=== PATIENT | male | born 1990 | race Caucasian/White ===

== ENCOUNTER 2017-10-14 20:58 | Emergency (ER) | payer MEDICAID ==
[~2017-10-14] VITALS: Ht 180.3 cm; Wt 75.0 kg
[2017-10-14 21:09] VITALS: BP 134/79
[2017-10-14] MEDS ORDERED: DEXAMETHASONE 4 MG TABLET ONE (21:46)
[2017-10-14] MEDS ORDERED: ACETAMINOPHEN 500 MG TABLET ONE (21:46)
[2017-10-14] MEDS ORDERED: DEXAMETHASONE 4 MG TABLET PO ONE (22:00)
[2017-10-14] MEDS ORDERED: ACETAMINOPHEN 500 MG TABLET PO ONE (22:00)
== END 2017-10-14 21:57 | disposition home or self-care (01) ==
LOC: ED 21:45
DX: J02.0 Streptococcal pharyngitis (principal)
CPT/HCPCS: 99283

== ENCOUNTER 2018-01-13 12:00 | Emergency (ER) | payer MEDICAID ==
[~2018-01-13] VITALS: Ht 180.3 cm; Wt 74.9 kg
[2018-01-13 12:06] VITALS: BP 114/76
[2018-01-13] MEDS ORDERED: IBUPROFEN 200 MG TABLET ONE (12:22)
[2018-01-13] MEDS ORDERED: IBUPROFEN 200 MG TABLET PO ONE (12:30)
== END 2018-01-13 12:50 | disposition home or self-care (01) ==
LOC: ED 12:30
DX: J02.8 Acute pharyngitis due to other specified organisms (principal); B34.9 Viral infection, unspecified; Z87.891 Personal history of nicotine dependence
CPT/HCPCS: 87081; 87880; 99284

== ENCOUNTER 2018-01-16 15:55 | Emergency (ER) | payer MEDICAID ==
[~2018-01-16] VITALS: Ht 180.3 cm; Wt 72.4 kg
[2018-01-16 16:02] VITALS: BP 122/72
[2018-01-16] MEDS ORDERED: MAALOX/HYOSCYAMINE/LIDOCAINE 45 ML BTL PO ONE (17:00)
[2018-01-16] MEDS ORDERED: MAALOX/HYOSCYAMINE/LIDOCAINE 45 ML BTL ONE (17:05)
== END 2018-01-16 17:22 | disposition home or self-care (01) ==
LOC: ED 17:16
DX: K12.0 Recurrent oral aphthae (principal); K08.89 Other specified disorders of teeth and supporting structures; Z87.891 Personal history of nicotine dependence
CPT/HCPCS: 87081; 87880; 99284

== ENCOUNTER 2019-06-28 00:13 | Emergency (ER) | payer MEDICAID ==
--- NOTE | 2019-06-28 00:25 | NUR ---
Patient BIB [facility]; he was found at a bar on the ground. Patient has a left side head laceration; bleeding controlled. Patient is only responsive to pain. He is incontinent of urine. Respirations even and unlabored.
[2019-06-28 00:40] LABS: BASOPHILS # (AUTO) 0.04 x10^3/uL (0-0.1); BASOPHILS % (AUTO) 1 % (0-1); EOSINOPHILS # (AUTO) 0.62 x10^3/uL (0-0.4); EOSINOPHILS % (AUTO) 8 % (1-7); LYMPHOCYTES % (AUTO) 28 % (22-44); MD NO; MEAN CORPUSCULAR HEMOGLOBIN 32.6 pg (27.5-34.5); MEAN CORPUSCULAR HGB CONC 33.9 g/dL (33.2-36.2); MEAN PLATELET VOLUME 7.5 fL (7.4-10.4); MONOCYTES # (AUTO) 0.71 x10^3/uL (0.2-0.8); MONOCYTES % (AUTO) 9 % (2-9); NEUTROPHILS # (AUTO) 4.65 x10^3/uL (1.8-6.8); NEUTROPHILS % (AUTO) 56 % (42-75); PLATELET COUNT 305 x10^3/uL (130-400); RED BLOOD COUNT 4.67 x10^6/uL (4.38-5.82); RED CELL DISTRIBUTION WIDTH 13.8 % (9.4-14.8)
[2019-06-28 00:45] LABS: ALBUMIN 3.8 g/dL (3.4-5.0); ANION GAP 5 mmol/L (5-15); CALCIUM 8.8 mg/dL (8.5-10.1); CHLORIDE 108 mmol/L (98-107); CREATININE 0.99 mg/dL (0.7-1.3)
--- NOTE | 2019-06-28 02:48 | NUR ---
Patient sleeping in gurney. Respirations even and unlabored.
--- NOTE | 2019-06-28 05:00 | NUR ---
Patient wakes to verbal stimuli but still falls asleep easily. ERP rechecked patient's lac. Will recheck when patient is awake.
--- NOTE | 2019-06-28 06:19 | NUR ---
Head lac reevluated by ERP. Violet recommended; patient alert to verbal stimuli and denied the need. Per ERP, advise patient again when he is more sober.
[2019-06-28 06:35] VITALS: BP 105/50
--- NOTE | 2019-06-28 07:01 | NUR ---
REPORT FROM RICHARD RN WITH ASSESSMENT PATIENT REMAINS QUITE INTOXICATED (WILL ONLY ROUSE TO PAINFUL STIMULI) PROTECTING AIRWAY, VSS WILL CONTINUE TO MONITOR
--- NOTE | 2019-06-28 08:15 | NUR ---
Patient now awake and oriented Denies complaints Road test/po challenge unremarkable Reported laceration assessed/cleansed- no laceration found-on superficial abrasion above left ear bacitracin applied. Reviewed wound care
== END 2019-06-28 09:29 | disposition home or self-care (01) ==
LOC: ED 07:10
DX: S01.01XA Laceration without foreign body of scalp, initial encounter (principal); F10.120 Alcohol abuse with intoxication, uncomplicated; Y90.9 Presence of alcohol in blood, level not specified; Y93.89 Activity, other specified; Y92.89 Other specified places as the place of occurrence of the external cause; Y99.8 Other external cause status
CPT/HCPCS: 12001; 36415; 70450; 80048; 80307; 82040; 85025; 99284

== ENCOUNTER 2019-07-01 12:52 | Emergency (ER) | payer MEDICAID ==
[~2019-07-01] VITALS: Ht 180.3 cm; Wt 79.5 kg
[2019-07-01 12:54] VITALS: BP 143/88
[2019-07-01] MEDS ORDERED: KETOROLAC 60 MG/2 ML ONE (13:49)
[2019-07-01] MEDS ORDERED: KETOROLAC 30 MG/1 ML IM ONE (14:00)
== END 2019-07-01 15:00 | disposition home or self-care (01) ==
LOC: ED 14:42
DX: S06.0X0A Concussion without loss of consciousness, initial encounter (principal); R51 Headache; W18.30XA Fall on same level, unspecified, initial encounter; Y93.89 Activity, other specified; Y92.89 Other specified places as the place of occurrence of the external cause; Y99.8 Other external cause status
CPT/HCPCS: 96372; 99283; J1885

== ENCOUNTER 2019-07-10 13:00 | Emergency (ER) | payer MEDICAID ==
[~2019-07-10] VITALS: Ht 177.8 cm; Wt 78.0 kg
[2019-07-10 13:09] VITALS: BP 117/71
--- NOTE | 2019-07-10 13:31 | NUR ---
Patient/Caregiver given discharge instructions and they have confirmed that they understand the instructions. Patient ambulatory with steady gait. PT LEFT WITH ALL PERSONAL BELONGINGS.
== END 2019-07-10 13:33 | disposition home or self-care (01) ==
LOC: ED 13:26
DX: S01.01XD Laceration without foreign body of scalp, subsequent encounter (principal); X58.XXXD Exposure to other specified factors, subsequent encounter
CPT/HCPCS: 99281

== ENCOUNTER 2019-10-14 21:25 | Emergency (ER) | payer MEDICAID ==
[~2019-10-14] VITALS: Ht 180.3 cm; Wt 78.0 kg
[2019-10-14] MEDS ORDERED: ONDANSETRON 2MG/ML, 2ML IVPush ONE (21:30)
[2019-10-14] MEDS ORDERED: MORPHINE SULFATE 4 MG/ML, 1ML IVPush PRN (21:30)
--- NOTE | 2019-10-14 21:37 | NUR ---
PT TO XRAY
[2019-10-14] MEDS ORDERED: MORPHINE SULFATE 4 MG/ML, 1ML ONE (21:40)
[2019-10-14] MEDS ORDERED: ONDANSETRON 2MG/ML, 2ML ONE (21:41)
--- NOTE | 2019-10-14 22:04 | NUR ---
ICE APPLIED TO RIGHT ELBOW, PT MEDICATED PER MAR
[2019-10-14 22:12] VITALS: BP 107/69
== END 2019-10-14 23:39 | disposition home or self-care (01) ==
LOC: ED 22:59
DX: G89.11 Acute pain due to trauma (principal); M25.521 Pain in right elbow; F17.210 Nicotine dependence, cigarettes, uncomplicated; W19.XXXA Unspecified fall, initial encounter; Y93.89 Activity, other specified; Y92.830 Public park as the place of occurrence of the external cause; Y99.8 Other external cause status
CPT/HCPCS: 29125; 73060; 73070; 73090; 96374; 96375; 99284; 99406; J2270; J2405